=== PATIENT | male | born 1950 | race Caucasian/White ===

== ENCOUNTER 2021-05-05 04:50 | Day surgery (SDC) | payer OTHER, BC ==
[2021-05-02 14:13] VITALS: BMI 23.6
[2021-05-05 11:09] VITALS: TEMP 97.3
[2021-05-05 11:59] VITALS: BP 107/70; PULSE 74
== END 2021-05-05 12:18 | disposition home or self-care (01) ==
LOC: JASU-ENDO 04:50
PROVIDERS: ATTEND Internal Medicine Gastroenterology
PROC: 0DJD8ZZ Inspection of Lower Intestinal Tract, Via Natural or Artificial Opening Endoscopic (ICD-10-PCS; principal; 2021-05-05 10:00)
DX: Z12.11 Encounter for screening for malignant neoplasm of colon (principal); K57.30 Diverticulosis of large intestine without perforation or abscess without bleeding; K64.8 Other hemorrhoids